=== PATIENT | female | born 1965 | race African-American/Black ===

== ENCOUNTER → 2022-02-21 | Day surgery (SDC) | payer OTHER, MEDICARE ==
[~2022-02-21] VITALS: Ht 157.5 cm; Wt 75.7 kg
[~2022-02-21] MED LIST: ACETAMINOPHEN500 M1 PO; BACLOFEN 10MG T10 MG PO; BACTROBAN NASAL1 GM; BIOTIN1 M1 PO; BOTOX100 UNIT IM; CERTAGEN1 EACH PO; CLARITIN10 MG PO; DIFLUCAN 100MG100 MG PO; EMGALITY120 MG/1 M INJO; HCTZ25 MG PO; IBUPROFEN800 M1 PO; IPRAT-ALBUT 0.5-3 ML PO; LIPITOR 10MG TA10 MG PO; MOTRIN600 MG PO; NEURONTIN300 MG PO; PANTOPRAZOLE SO20 MG PO; PLAQUENIL200 MG PO; PRILOSEC20 MG PO; REGLAN10 MG PO; RINVOQ ER15 MG PO; TOPIRAMATE 75 MG PO; TOPIRAMATE ER50 MG PO; UBRELVY100 MG PO; WELLBUTRIN XL150 MG PO; WELLBUTRIN XL300 MG PO
[2022-02-21 07:26] LABS: HCG (URINE) SCREEN NEGATIVE (NEGATIVE)
== END | disposition home or self-care (01) ==
LOC: FAS 07:01
PROVIDERS: Obstetrics & Gynecology
DX: D25.9 Leiomyoma of uterus, unspecified (principal); N88.2 Stricture and stenosis of cervix uteri; K21.9 Gastro-esophageal reflux disease without esophagitis; E78.5 Hyperlipidemia, unspecified; E66.9 Obesity, unspecified; Z88.6 Allergy status to analgesic agent; Z88.1 Allergy status to other antibiotic agents; Z88.8 Allergy status to other drugs, medicaments and biological substances; Z85.3 Personal history of malignant neoplasm of breast
CPT/HCPCS: 84703; 93005; J1100; J1170; J1885; J2250; J2405; J2704; J3010; J7120